=== PATIENT | male | born 1985 ===

== ENCOUNTER 2024-02-06 06:42 | Day surgery (SDC) | payer OTHER ==
[~2024-02-06] VITALS: Ht 172.7 cm; Wt 81.6 kg
[2024-02-06] MEDS ORDERED: CEFTRIAXONE SODIUM 2,000 MG VIAL ONE (14:18)
[2024-02-06] MEDS ORDERED: METRONIDAZOLE/SODIUM CHLORIDE 500 MG/100 ML PIGGYBACK IV ONE ×2 (14:18→16:45)
[2024-02-06] MEDS ORDERED: HEMOSTATIC MATRIX 1 KIT KIT TOP ONE ×2 (14:41→16:45)
[2024-02-06] MEDS ORDERED: POVIDONE-IODINE 118 ML BOTT TOP ONE ×2 (14:41→16:45)
[2024-02-06] MEDS ORDERED: DIBUCAINE 30 GM TUBE ONE (14:42)
[2024-02-06] MEDS ORDERED: BUPIVACAINE HCL/PF 0.5% 30ML ML ONE (15:20)
[2024-02-06] MEDS ORDERED: LIDOCAINE HCL/EPINEPHRINE 10MG/ML 1% 50ML IJ ONE (15:20)
[2024-02-06] MEDS ORDERED: OXYC1TAB9 PO (15:38)
[2024-02-06] MEDS ORDERED: TAMSULOSIN HCL 0.4 MG CAP PO ONE (15:45)
[2024-02-06] MEDS ORDERED: CEFTRIAXONE SODIUM 2,000 MG VIAL IV ONE (16:45)
[2024-02-06] MEDS ORDERED: DIBUCAINE 30 GM TUBE RECTAL ONE (16:45)
[2024-02-06] MEDS ORDERED: BUPIVACAINE HCL 30 ML VIAL IJ ONE (16:45)
[2024-02-06] MEDS ORDERED: LIDOCAINE HCL 1%/Epi 20ML VIAL IJ ONE (16:45)
== END 2024-02-06 19:45 | disposition home or self-care (01) ==
LOC: CIR.AMB 06:42
PROVIDERS: ATTEND Surgery
DX: K60.3 Anal fistula (principal); K60.1 Chronic anal fissure

== ENCOUNTER 2024-07-08 05:10 | Day surgery (SDC) | payer OTHER ==
[~2024-07-08] VITALS: Ht 172.7 cm; Wt 79.4 kg
[~2024-07-08 05:10] MED LIST: OXYC1TAB9 PO
[2024-07-08] MEDS ORDERED: CEFTRIAXONE SODIUM 2,000 MG VIAL ONE ×2 (06:35→07:09)
[2024-07-08] MEDS ORDERED: METRONIDAZOLE/SODIUM CHLORIDE 500 MG/100 ML PIGGYBACK IV ONE ×2 (06:36→07:09)
[2024-07-08] MEDS ORDERED: LIDOCAINE HCL 1%/EPINEPHRINE 20ML VIAL IJ ONE (07:08)
[2024-07-08] MEDS ORDERED: POVIDONE-IODINE 118 ML BOTT TOP ONE (07:08)
[2024-07-08] MEDS ORDERED: HEMOSTATIC MATRIX 1 KIT KIT TOP ONE (07:08)
[2024-07-08] MEDS ORDERED: DIBUCAINE 30 GM TUBE ONE (07:08)
[2024-07-08] MEDS ORDERED: BUPIVACAINE HCL/MPF 0.5% 30ML VIAL ONE (07:08)
[2024-07-08] MEDS ORDERED: TAMSULOSIN HCL 0.4 MG CAP PO ONE ×2 (08:15→08:43)
[2024-07-08] MEDS ORDERED: OXYC1TAB9 PO (08:59)
== END 2024-07-08 11:55 | disposition home or self-care (01) ==
LOC: CIR.AMB 05:10
PROVIDERS: ATTEND Surgery
DX: K60.3 Anal fistula (principal); K60.1 Chronic anal fissure; K62.89 Other specified diseases of anus and rectum; F41.9 Anxiety disorder, unspecified